=== PATIENT | male | born 1950 | race Caucasian/White ===

== ENCOUNTER 2016-08-27 20:05 | Emergency (ER) | payer MEDICARE, OTHER ==
[2016-08-27] MEDS ORDERED: GLUCAGON 1 MG/ML VIAL IVP STA (20:54)
[2016-08-27] MEDS ORDERED: GLUCAGON 1 MG/ML VIAL ONE (20:56)
[2016-08-27] MEDS ORDERED: WATER FOR INJECTION,STERILE 10 ML ONE (20:56)
== END 2016-08-27 21:52 | disposition home or self-care (01) ==
DX: T18.128A Food in esophagus causing other injury, initial encounter (principal); K21.9 Gastro-esophageal reflux disease without esophagitis; K44.9 Diaphragmatic hernia without obstruction or gangrene

== ENCOUNTER 2016-12-27 08:12 | Outpatient (CLI) | payer MEDICARE, OTHER ==
[2016-12-27 13:04] LABS: ALBUMIN/GLOBULIN RATIO 1.2 (1.0-2.2); BILIRUBIN,TOTAL 0.7 mg/dL (0.2-1.0); BUN - BLOOD UREA NITROGEN 14 mg/dL (6-20); CARBON DIOXIDE - CO2 28 mmol/L (21-32); CHLORIDE 102 mmol/L (101-111); CHOL/HDL RATIO 3.7 (<5.0); CHOLESTEROL 204 mg/dL; CREATININE 1.1 mg/dL (0.6-1.2); GFR - MDRD 67 (>89); GLUCOSE 155 mg/dL (70-100); HDL CHOLESTEROL 55 mg/dL; LDL/HDL RATIO 2.1 (<3.6); POTASSIUM 4.3 mmol/L (3.5-5.0); SODIUM 138 mmol/L (135-145); TOTAL PROTEIN 7.7 g/dL (6.7-8.2); TRIGLYCERIDES 162 mg/dL; VLDL CHOLESTEROL 32 mg/dL
[2016-12-27 13:11] LABS: HEMOGLOBIN A1C 1.05 g/dL
== END 2016-12-27 08:13 | disposition home or self-care (01) ==
LOC: LAB.WCP 08:12
PROVIDERS: ATTEND Family Medicine
DX: E78.5 Hyperlipidemia, unspecified (principal); E11.9 Type 2 diabetes mellitus without complications
CPT/HCPCS: 36415; 80053; 80061; 83036

== ENCOUNTER 2017-01-02 14:58 | Outpatient (CLI) | payer MEDICARE, OTHER ==
--- NOTE | 2017-01-03 11:38 | Ultrasound Report ---
CAROTID DUPLEX: 01/02/2017 CLINICAL INDICATION: Carotid calcifications noted on cervical spine film. TECHNIQUE: Real-time sonographic vascular imaging was performed by the cleaner furniture through the carotid arteries utilizing both color-flow and Doppler spectral analysis. Multiple specialty sales representative static images were saved for review. Vessel PSV cm/sec 2D Plaque Estimate % ICA/CCA PSV EDV cm/sec % Stenosis RCCA Prox 120 -- RCCA Dist 86 21 RECA 113 -- RT BULB 59 -- 0.68 12 SAMAN Prox 69 -- 0.80 28 SAMAN Mid 77 -- 0.89 37 SAMAN Dist 74 -- 0.86 27 RVA 32 RVA flow direction: Antegrade. Vessel PSV cm/sec 2D Plaque Estimate % ICA/CCA PSV EDV cm/sec % Stenosis LCCA Prox 133 -- LCCA Dist 91 23 LECA 91 -- LFT BULB 33 -- 0.36 8 LICA Prox 58 -- 0.63 22 LICA Mid 69 -- 0.75 24 LICA Dist 64 -- 0.70 26 LVA 35 LVA flow direction: Antegrade. Velocity criteria are extrapolated from diameter data as defined by the Society of Radiologists in Ultrasound Consensus Conference Radiology 2003; 229; 340-346. Degree of Stenosis % ICA PSV cm/sec Plaque Estimate % ICA/CCA RSV Ratio ICA EDV cm/sec Normal < 125 None < 2.0 < 40 <50 < 125 < 50 < 2.0 < 40 50-69 125 - 130 >/= 50 2.0 - 4.0 40 - 100 >/= 70 but less than near occlusion > 230 >/= 50 > 4.0 > 100 Near occlusion High, low, or undetectable Visible lumen Variable Variable Total occlusion Undetectable No detectable lumen Not applicable Not applicable FINDINGS RIGHT: There is mild calcified plaquing in the right carotid artery, without evidence of a focal hemodynamically significant stenosis. LEFT: There is mild calcified plaquing in the left carotid artery, without evidence of a focal hemodynamically significant stenosis. The vertebral arteries demonstrate antegrade flow bilaterally. IMPRESSION: MILD CALCIFIED PLAQUING, WITHOUT EVIDENCE OF A HEMODYNAMICALLY SIGNIFICANT CAROTID STENOSIS. MTDD
== END 2017-01-02 14:59 | disposition home or self-care (01) ==
LOC: DI 14:58
PROVIDERS: ATTEND Family Medicine
DX: R93.0 Abnormal findings on diagnostic imaging of skull and head, not elsewhere classified (principal)
CPT/HCPCS: 93880

== ENCOUNTER 2017-03-28 09:42 | Outpatient (CLI) | payer MEDICARE, OTHER ==
[2017-03-28 13:31] LABS: ALBUMIN/GLOBULIN RATIO 1.2 (1.0-2.2); BILIRUBIN,TOTAL 0.6 mg/dL (0.2-1.0); BUN - BLOOD UREA NITROGEN 17 mg/dL (6-20); CALCIUM 8.9 mg/dL (8.5-10.3); CARBON DIOXIDE - CO2 27 mmol/L (21-32); CHLORIDE 106 mmol/L (101-111); CHOL/HDL RATIO 3.7 (<5.0); CHOLESTEROL 182 mg/dL; CREATININE 1.3 mg/dL (0.6-1.2); GFR - MDRD 55 (>89); GLUCOSE 149 mg/dL (70-100); HDL CHOLESTEROL 49 mg/dL; LDL/HDL RATIO 2.2 (<3.6); POTASSIUM 4.2 mmol/L (3.5-5.0); SODIUM 141 mmol/L (135-145); TOTAL PROTEIN 7.4 g/dL (6.7-8.2); TRIGLYCERIDES 126 mg/dL; VLDL CHOLESTEROL 25 mg/dL
[2017-03-28 13:40] LABS: HEMOGLOBIN A1C 1.05 g/dL
== END 2017-03-28 09:43 | disposition home or self-care (01) ==
LOC: LAB.WCP 09:42
PROVIDERS: ATTEND Family Medicine
DX: E11.9 Type 2 diabetes mellitus without complications (principal); E78.5 Hyperlipidemia, unspecified
CPT/HCPCS: 36415; 80053; 80061; 83036

== ENCOUNTER 2017-06-30 08:25 | Outpatient (CLI) | payer MEDICARE, OTHER ==
[2017-06-30 12:47] LABS: ALBUMIN/GLOBULIN RATIO 1.2 (1.0-2.2); BILIRUBIN,TOTAL 0.6 mg/dL (0.2-1.0); BUN - BLOOD UREA NITROGEN 16 mg/dL (6-20); CALCIUM 8.8 mg/dL (8.5-10.3); CARBON DIOXIDE - CO2 27 mmol/L (21-32); CHLORIDE 105 mmol/L (101-111); CHOL/HDL RATIO 3.5 (<5.0); CHOLESTEROL 176 mg/dL; CREATININE 1.2 mg/dL (0.6-1.2); GFR - MDRD 60 (>89); GLUCOSE 135 mg/dL (70-100); HDL CHOLESTEROL 50 mg/dL; LDL/HDL RATIO 1.9 (<3.6); POTASSIUM 4.2 mmol/L (3.5-5.0); SODIUM 138 mmol/L (135-145); TOTAL PROTEIN 7.5 g/dL (6.7-8.2); TRIGLYCERIDES 145 mg/dL; VLDL CHOLESTEROL 29 mg/dL
[2017-06-30 12:48] LABS: HEMOGLOBIN A1C 1.01 g/dL
== END 2017-06-30 08:26 | disposition home or self-care (01) ==
LOC: LAB.WCP 08:25
PROVIDERS: ATTEND Family Medicine
DX: E11.9 Type 2 diabetes mellitus without complications (principal); E78.5 Hyperlipidemia, unspecified
CPT/HCPCS: 36415; 80053; 80061; 83036

== ENCOUNTER 2017-08-21 15:23 | Outpatient (CLI) | payer MEDICARE, OTHER ==
[2017-08-21 18:47] LABS: BASOPHILS # (AUTO) 0.1 10^3/uL (0.0-0.1); BASOPHILS % (AUTO) 1.1 %; EOSINOPHILS # (AUTO) 0.3 10^3/uL (0.0-0.7); HGB - HEMOGLOBIN 15.7 g/dL (14.0-18.0); LYMPHOCYTES # (AUTO) 1.5 10^3/uL (1.5-3.5); LYMPHOCYTES % (AUTO) 26.1 %; MEAN CORPUSCULAR HGB CONC 33.3 g/dL (32.0-36.0); MEAN CORPUSCULAR VOLUME 93.1 fL (80.0-94.0); MEAN PLATELET VOLUME 8.7 fL (7.4-11.4); MONOCYTES # (AUTO) 0.5 10^3/uL (0.0-1.0); MONOCYTES % (AUTO) 8.2 %; NEUTROPHILS # (AUTO) 3.5 10^3/uL (1.5-6.6); NEUTROPHILS % (AUTO) 59.6 %; PLT - PLATELET COUNT 206 10^3/uL (130-450); RED BLOOD COUNT 5.07 10^6/uL (4.70-6.10); RED CELL DISTRIBUTION WIDTH 13.7 % (12.0-15.0); WHITE BLOOD COUNT 5.9 x10^3/uL (4.8-10.8)
[2017-08-21 19:13] LABS: ALBUMIN/GLOBULIN RATIO 1.2 (1.0-2.2); BILIRUBIN,TOTAL 0.4 mg/dL (0.2-1.0); CALCIUM 8.7 mg/dL (8.5-10.3); CREATININE 1.3 mg/dL (0.6-1.2); TOTAL PROTEIN 7.3 g/dL (6.7-8.2)
[2017-08-21 19:21] LABS: THYROID STIMULATING HORMONE 1.28 uIU/mL (0.34-5.60)
== END 2017-08-21 15:24 | disposition home or self-care (01) ==
LOC: LAB.WCP 15:23
PROVIDERS: ATTEND Family Medicine
DX: R41.3 Other amnesia (principal); R25.1 Tremor, unspecified; R53.83 Other fatigue
CPT/HCPCS: 36415; 80053; 82607; 82746; 84443; 85025

== ENCOUNTER 2017-10-13 08:09 | Outpatient (CLI) | payer MEDICARE, OTHER ==
[2017-10-13 13:28] LABS: ALBUMIN 4.4 g/dL (3.2-5.5); ALBUMIN/GLOBULIN RATIO 1.5 (1.0-2.2); ALKALINE PHOSPHATASE 52 IU/L (42-121); ALT ALANINE AMINOTRANSFERASE 15 IU/L (10-60); AST ASPARTATE AMINOTRANSFERASE 24 IU/L (10-42); BILIRUBIN,TOTAL 0.8 mg/dL (0.2-1.0); BUN - BLOOD UREA NITROGEN 16 mg/dL (6-20); CALCIUM 8.6 mg/dL (8.5-10.3); CARBON DIOXIDE - CO2 27 mmol/L (21-32); CHLORIDE 102 mmol/L (101-111); CHOL/HDL RATIO 4.5 (<5.0); CHOLESTEROL 197 mg/dL; CREATININE 1.3 mg/dL (0.6-1.2); GFR - MDRD 55 (>89); GLUCOSE 136 mg/dL (70-100); HDL CHOLESTEROL 44 mg/dL; LDL CHOLESTEROL,CALCULATED 116 mg/dL; LDL/HDL RATIO 2.6 (<3.6); SODIUM 137 mmol/L (135-145); TOTAL PROTEIN 7.4 g/dL (6.7-8.2); VLDL CHOLESTEROL 37 mg/dL
[2017-10-13 13:34] LABS: HB2 TOTAL 18.1 g/dL; HEMOGLOBIN A1C 1.09 g/dL; HEMOGLOBIN A1C % 7.7 % (4.6-6.2)
== END 2017-10-13 08:10 | disposition home or self-care (01) ==
LOC: LAB.WCP 08:09
PROVIDERS: ATTEND Family Medicine
DX: E78.5 Hyperlipidemia, unspecified (principal); E11.9 Type 2 diabetes mellitus without complications
CPT/HCPCS: 36415; 80053; 80061; 83036; 83721

== ENCOUNTER 2018-03-05 08:56 | Outpatient (CLI) | payer MEDICARE, OTHER ==
[2018-03-05 13:12] LABS: HB2 TOTAL 18.5 g/dL; HEMOGLOBIN A1C 1.13 g/dL; HEMOGLOBIN A1C % 7.7 % (4.6-6.2)
[2018-03-05 13:38] LABS: ALBUMIN 4.4 g/dL (3.2-5.5); ALBUMIN/GLOBULIN RATIO 1.3 (1.0-2.2); ALKALINE PHOSPHATASE 63 IU/L (42-121); ALT ALANINE AMINOTRANSFERASE 15 IU/L (10-60); AST ASPARTATE AMINOTRANSFERASE 25 IU/L (10-42); BILIRUBIN,TOTAL 0.5 mg/dL (0.2-1.0); BUN - BLOOD UREA NITROGEN 17 mg/dL (6-20); CALCIUM 8.9 mg/dL (8.5-10.3); CARBON DIOXIDE - CO2 26 mmol/L (21-32); CHLORIDE 105 mmol/L (101-111); CHOL/HDL RATIO 3.9 (<5.0); CHOLESTEROL 219 mg/dL; CREATININE 1.1 mg/dL (0.6-1.2); GFR - MDRD 67 (>89); GLUCOSE 158 mg/dL (70-100); HDL CHOLESTEROL 56 mg/dL; LDL CHOLESTEROL,CALCULATED 128 mg/dL; LDL/HDL RATIO 2.3 (<3.6); SODIUM 140 mmol/L (135-145); TOTAL PROTEIN 7.7 g/dL (6.7-8.2); VLDL CHOLESTEROL 35 mg/dL
== END 2018-03-05 08:57 | disposition home or self-care (01) ==
LOC: LAB.WCP 08:56
PROVIDERS: ATTEND Family Medicine
DX: E78.5 Hyperlipidemia, unspecified (principal); E11.9 Type 2 diabetes mellitus without complications
CPT/HCPCS: 36415; 80053; 80061; 83036; 83721

== ENCOUNTER 2018-03-31 12:10 | Outpatient (CLI) | payer MEDICARE, OTHER | END 2018-03-31 12:11 | disposition home or self-care (01) | LOC: LAB.WCP 12:10 | PROVIDERS: ATTEND Family Medicine | DX: R25.1 Tremor, unspecified (principal) | CPT/HCPCS: 36415; 84443 ==

== ENCOUNTER 2018-04-21 09:21 | Outpatient (CLI) | payer MEDICARE, OTHER ==
--- NOTE | 2018-04-21 12:55 | MRI Report ---
Reason: DIZZINESS,SLURRED SPEECH,MEMORY LOSS Procedure Date: 04/21/2018 Accession Number: [id number] / [id number] Procedure: MRI - Brain W/O CPT Code: FULL RESULT: EXAM: MRI BRAIN WITHOUT CONTRAST EXAM DATE: 04/21/2018 10:24 AM. CLINICAL HISTORY: 67-year-old male. Dizziness, slurred Speech, memory LOSS. COMPARISON: None. TECHNIQUE: Multiplanar, multisequence T1-weighted and fluid-sensitive MR sequences of the brain were performed. Sequences optimized for routine evaluation. Other: None. IV Contrast: None. FINDINGS: Brain Volume: Mild diffuse cerebral volume loss, not clearly advanced for age. Parenchyma/Dura: No mass, acute infarct or hemorrhage. Few scattered FLAIR hyperintense subcortical, deep, and periventricular white matter lesions within the cerebral hemispheres bilaterally. There is a focus of susceptibility artifact within the left centrum semiovale (series 801 image 17). Ventricles/Cisterns: No hydrocephalus. No abnormal extra-axial fluid collection or hemorrhage. Orbits: Status post bilateral lens replacement surgery. The visualized orbits are otherwise unremarkable. Sella Turcica: The pituitary gland, cavernous sinuses, suprasellar cistern and optic chiasm are unremarkable. IAC: Symmetric and unremarkable. Vasculature: Normal signal flow void is seen in the major arterial structures at the skull base. Sinuses: No acute appearing sinus disease. Bones: No focal pathologic appearing marrow signal changes. Other: None. IMPRESSION: 1. No MRI evidence of acute intracranial abnormality. Specifically, no evidence of acute or subacute infarct, acute intracranial hemorrhage, mass, midline shift, or hydrocephalus. 2. Few scattered white matter T2/FLAIR hyperintensities, nonspecific, and can be seen with the entire gamut of white matter conditions, including migraine headaches and as sequela of chronic microangiopathy. 3. Mild diffuse cerebral volume loss, not clearly advanced for age. 4. There is a focus of susceptibility artifact within the left centrum semiovale (series 801 image 17). This is nonspecific for chronic microhemorrhage versus a tiny cavernomatous malformation. RADIA
== END 2018-04-21 09:22 | disposition home or self-care (01) ==
LOC: DI 09:21
PROVIDERS: ATTEND Family Medicine
DX: R42 Dizziness and giddiness (principal); R47.81 Slurred speech; R41.3 Other amnesia
CPT/HCPCS: 70551

== ENCOUNTER 2018-07-06 08:06 | Outpatient (CLI) | payer MEDICARE, OTHER ==
[2018-07-06 13:12] LABS: ALBUMIN 4.3 g/dL (3.2-5.5); ALBUMIN/GLOBULIN RATIO 1.3 (1.0-2.2); ALKALINE PHOSPHATASE 59 IU/L (42-121); ALT ALANINE AMINOTRANSFERASE 15 IU/L (10-60); AST ASPARTATE AMINOTRANSFERASE 21 IU/L (10-42); BILIRUBIN,TOTAL 0.7 mg/dL (0.2-1.0); BUN - BLOOD UREA NITROGEN 15 mg/dL (6-20); CARBON DIOXIDE - CO2 29 mmol/L (21-32); CHLORIDE 101 mmol/L (101-111); CHOL/HDL RATIO 4.5 (<5.0); CHOLESTEROL 230 mg/dL; CREATININE 1.1 mg/dL (0.6-1.2); GFR - MDRD 67 (>89); GLUCOSE 172 mg/dL (70-100); HDL CHOLESTEROL 51 mg/dL; LDL CHOLESTEROL,CALCULATED 136 mg/dL; LDL/HDL RATIO 2.7 (<3.6); SODIUM 136 mmol/L (135-145); TOTAL PROTEIN 7.7 g/dL (6.7-8.2); VLDL CHOLESTEROL 43 mg/dL
[2018-07-06 14:10] LABS: HB2 TOTAL 16.6 g/dL; HEMOGLOBIN A1C 1.44 g/dL; HEMOGLOBIN A1C % 10.1 % (4.6-6.2)
== END 2018-07-06 23:59 | disposition home or self-care (01) ==
LOC: LAB.WCP 08:06
PROVIDERS: ATTEND Family Medicine
DX: E11.9 Type 2 diabetes mellitus without complications (principal); E78.5 Hyperlipidemia, unspecified
CPT/HCPCS: 36415; 80053; 80061; 83036; 83721

== ENCOUNTER 2018-07-09 08:00 | Outpatient (CLI) | payer MEDICARE, OTHER ==
[2018-07-09 19:39] LABS: HB2 TOTAL 16.8 g/dL; HEMOGLOBIN A1C 1.08 g/dL
== END 2018-07-09 23:59 | disposition home or self-care (01) ==
LOC: LAB.WCP 08:00
PROVIDERS: ATTEND Family Medicine
DX: E11.9 Type 2 diabetes mellitus without complications (principal)
CPT/HCPCS: 36415; 83036

== ENCOUNTER 2018-08-21 08:00 | Outpatient (CLI) | payer MEDICARE, OTHER ==
[2018-08-21] MEDS ORDERED: IOVERSOL 320 100 ML VIAL IVP ONE ×3 (08:18→08:56)
[2018-08-21 08:32] LABS: ALBUMIN 4.2 g/dL (3.2-5.5); ALBUMIN/GLOBULIN RATIO 1.2 (1.0-2.2); BILIRUBIN,TOTAL 0.8 mg/dL (0.2-1.0); CALCIUM 9.1 mg/dL (8.5-10.3); CREATININE 1.2 mg/dL (0.6-1.2); TOTAL PROTEIN 7.7 g/dL (6.7-8.2)
--- NOTE | 2018-08-21 09:33 | CT Report ---
Reason: COPD Procedure Date: 08/21/2018 Accession Number: [id number] / [id number] Procedure: CT - Chest W/ CPT Code: FULL RESULT: EXAM: CT CHEST EXAM DATE: 08/21/2018 08:53 AM. CLINICAL HISTORY: COPD. COMPARISONS: CHEST SCREEN LOW DOSE W/O 01/07/2016 9:13 AM. TECHNIQUE: Routine helical CT imaging was performed through the chest. IV contrast: None. Reconstructions: Coronal and sagittal. In accordance with CT protocol optimization, one or more of the following dose reduction techniques were utilized for this exam: automated exposure control, adjustment of mA and/or KV based on patient size, or use of iterative reconstructive technique. FINDINGS: Lungs/Pleura: Lung nodules are described on series 4 Stable 4 mm nodule adjacent to right minor fissure image 34 Stable 2 mm nodule right lower lobe posterior medial image 48 Not previously identified 2 mm nodule left upper lobe laterally image 34 Mediastinum: Coronary artery calcification. No significant adenopathy. No pericardial effusion. Bones: DJD spine. Visualized Abdomen: Moderate sized hiatal hernia Other: None. IMPRESSION: 1. Stable right sided nodules. 2 mm left upper lobe nodule not previously identified. Optional follow-up can be in 12 months per Fleischner recommendation RADIA
== END 2018-08-21 08:01 | disposition home or self-care (01) ==
LOC: DI 08:00
PROVIDERS: ATTEND Family Medicine
DX: R91.8 Other nonspecific abnormal finding of lung field (principal); J44.9 Chronic obstructive pulmonary disease, unspecified; E78.5 Hyperlipidemia, unspecified
CPT/HCPCS: 36415; 71260; 80053; Q9967

== ENCOUNTER 2018-09-30 08:15 | Outpatient (CLI) | payer MEDICARE, OTHER ==
[2018-09-30 13:43] LABS: ALBUMIN 4.1 g/dL (3.2-5.5); ALBUMIN/GLOBULIN RATIO 1.2 (1.0-2.2); ALKALINE PHOSPHATASE 60 IU/L (42-121); ALT ALANINE AMINOTRANSFERASE 17 IU/L (10-60); AST ASPARTATE AMINOTRANSFERASE 36 IU/L (10-42); BILIRUBIN,TOTAL 1.1 mg/dL (0.2-1.0); BUN - BLOOD UREA NITROGEN 15 mg/dL (6-20); CALCIUM 8.6 mg/dL (8.5-10.3); CARBON DIOXIDE - CO2 24 mmol/L (21-32); CHLORIDE 102 mmol/L (101-111); CHOLESTEROL 145 mg/dL; CREATININE 1.2 mg/dL (0.6-1.2); GFR - MDRD 60 (>89); GLUCOSE 129 mg/dL (70-100); HDL CHOLESTEROL 49 mg/dL; LDL CHOLESTEROL,CALCULATED 76 mg/dL; LDL/HDL RATIO 1.6 (<3.6); SODIUM 137 mmol/L (135-145); TOTAL PROTEIN 7.5 g/dL (6.7-8.2); VLDL CHOLESTEROL 20 mg/dL
[2018-09-30 14:56] LABS: HB2 TOTAL 17.4 g/dL; HEMOGLOBIN A1C 1.24 g/dL; HEMOGLOBIN A1C % 8.7 % (4.6-6.2)
== END 2018-09-30 23:59 | disposition home or self-care (01) ==
LOC: LAB.WCP 08:15
PROVIDERS: ATTEND Family Medicine
DX: E11.9 Type 2 diabetes mellitus without complications (principal); E78.5 Hyperlipidemia, unspecified; R53.83 Other fatigue
CPT/HCPCS: 36415; 80053; 80061; 83036; 83721; 84443

== ENCOUNTER 2018-09-30 10:14 | Outpatient (CLI) | payer MEDICARE, OTHER | END 2018-09-30 23:59 | disposition home or self-care (01) | LOC: LAB.R 10:14 | PROVIDERS: ATTEND Physician Assistant | DX: J06.9 Acute upper respiratory infection, unspecified (principal) | CPT/HCPCS: 87275; 87276 ==

== ENCOUNTER 2018-10-02 14:43 | Outpatient (CLI) | payer MEDICARE, OTHER ==
--- NOTE | 2018-10-03 14:45 | XRAY Report ---
Reason: INFLUENZA A Procedure Date: 10/02/2018 Accession Number: [id number] / [id number] Procedure: WCP - Chest 2 View X-Ray CPT Code: 33296 FULL RESULT: EXAM: CHEST RADIOGRAPHY EXAM DATE: 10/02/2018 03:06 PM. CLINICAL HISTORY: Influenza A. COMPARISON: CHEST 2 VIEW PA/LAT 08/07/2018 2:46 PM. TECHNIQUE: 2 views. FINDINGS: Lungs/Pleura: No focal opacities evident. No pleural effusion. No pneumothorax. High normal lung volumes and flattened diaphragms, suggestive of COPD. Mediastinum: Heart and mediastinal contours are unremarkable with the exception of aortic arch calcifications. Other: None. IMPRESSION: No confluent airspace disease is detected. RADIA
== END 2018-10-02 14:44 | disposition home or self-care (01) ==
LOC: DI.WCP 14:43
PROVIDERS: ATTEND Physician Assistant
DX: J09.X2 Influenza due to identified novel influenza A virus with other respiratory manifestations (principal)
CPT/HCPCS: 71046